=== PATIENT | female | born 1940 | race Caucasian/White ===

== ENCOUNTER 2024-12-07 11:50 | Inpatient (IN) ==
--- NOTE | 2024-12-07 12:08 | Emergency Department Note ---
Impression & Plan Stroke-like symptoms, Acute dehydration ED Provider Note Name: MALLORIE Silva KRYSTAL Age: 83 Sex: Female Arrives Via: Walk-In Informant: Patient, daughter ED Provider: Tito Marcial MD Chief Complaint: Strokelike symptoms Impression: As per impressions above Medical Decision Making: Pleasant 83-year-old female with a history of CHF, arrhythmia, dry mouth, single kidney status post resection of other for cancer arrives for evaluation of acute onset strokelike symptoms consisting of difficulty finding words, tremors and inability to ambulate in a straight line. Symptoms waxing and waning and seem to have improved somewhat on arrival. Mildly hypertensive on arrival as well. She is on Eliquis however given concerns for LVO and her inability to ambulate it was felt that CT of the head and angiography head and neck would be indicated. Sent emergency CT. Fortunately this does not show any acute obstructive pathology, bleed or mass as per CT. On return to ER laboratory workup does show moderately elevated creatinine though not overt failure. She does have known CHF but with her solitary kidney I think following a dye load it would be reasonable to give her some IV fluids. She does appear to be improving significantly. She admits that this is the third day in a row that this has been occurring. I do not feel that she would be a TNKase candidate given the several days of symptoms let alone the waxing and waning and her being on Eliquis. No clear other finding of infection at this time. Given her past medical history and these findings hospitalization would be indicated. There is no evidence of seizure at this time. Triage/Nursing Notes reviewed by Me Differential:Infection, dehydration, metabolic abnormality, hypo/hyperglycemia, electrolyte disturbance, anemia, hypoxia, cardiac sources, intracerebral event, toxicologic, neurologic, as well as other pathologies. Vital Signs: reviewed and remarkable for HTN Interventions: nss bolus Labs:ED labs Reviewed by me and remarkable for mild renal insufficiency Imaging:CT of the head without contrast as per my informal interpretation reveals no intracranial hemorrhage or mass effect. See radiologist report for full. CT of the head and neck with angiography reveals diffuse calcifications though no evidence of obstructive pathology. This is as per radiologist please see their report for full EKG:As per my interpretation. Indication weakness. AV dual paced at 70 bpm with a QTc of 598. There is no ectopy nor ischemia. There are no previous for comparison. Cardiac/Tele Monitoring: Cardiac Monitoring: An Order was placed for continuous cardiac monitoring. The monitor shows a rate of 70 with a paced rhythm. Consults:Discussed with Dr. Michel of the hospital service who will manage further. Plan: Disposition:Hospitalization. Condition: Good History of Present Illness: 83-year-old female arrives for evaluation of strokelike symptoms. Patient was last known well at 9 AM this morning when she was picked up by her daughter to drive from [place] here. On arrival patient was noted to be confused having difficulty walking straightly and was having slurred speech. Symptoms seem to wax and wane a bit. She did lose bladder control at 1 point. She was taken via private vehicle to [facility] for evaluation. On arrival patient speech is improved though she still feels unstable with her legs. Patient denies any headache, neck pain. She had a fall earlier today while trying to go to the bathroom but believes symptoms started prior to that. She has a bruise on her left shoulder which is from a RSV vaccine about 2 weeks ago. No recent fevers, chills, nausea, vomiting. Denies any abdominal pain, black stools, bleeding. Denies any leg swelling or calf pain. She has not been having any chest pain or palpitations. She has a history of A-fib and a pacemaker. She takes Eliquis twice daily and most recent dose was this morning. She did have breakfast. She has no history of blood sugar issues. Patient has a known solitary kidney. Daughter notes that patient reported having had similar episode the last few days that is been intermittent. Past Medical History: Single kidney, CHF, arrhythmia severe issues with dry mouth Home Medications: Multiple indications of note Eliquis Allergies: No known drug allergies or IV dye allergies Vitals:Blood Pressure: 170/101, Pulse 70, RR 18, T 36.7C, O2 94% on RA Physical Exam: GENERAL: Patient is tired appearing and in minimal distress. Dehydrated with dry mucous membranes RESPIRATORY: No dyspnea. Clear to auscultation and equal bilaterally. CARDIOVASCULAR: Regular rate and rhythm.No murmur appreciated. GASTROINTESTINAL: Abdomen soft, non-tender, no peritonitis. EXTREMITIES: Very tremulous with any movement. no cyanosis, no edema. NEUROLOGIC: Alert and oriented. No focal neurologic deficits appreciated. A bit of word finding difficulty at times but otherwise clear speech. Very tremulous and difficulty with lifting either leg. No focal deficit of cranial nerve appreciated. SKIN: No rash, no jaundice, no diaphoresis. Bruise left lateral shoulder PSYCH: Appropriate GCS: 15 ED Course: Times/Reassessments: Multiple repeat evaluations. Patient is stable throughout and improving Tito Marcial MD Past Med/Surg History Problem List (Updated 12/07/24 @ 17:53 by Tito Marcial MD) Acute dehydration (Acute) Prolonged QT interval Ambulatory dysfunction Stroke-like symptoms (Acute) Social History Smoking Status: Never smoker Preferred Language: Albanian Feels Safe at Home: Yes Allergies Allergies Allergy/AdvReac Type Severity Reaction Status Date / Time azithromycin Allergy Mild Rash Verified 12/07/24 12:37 chlorhexidine Allergy Mild Rash Verified 12/07/24 12:37 [From ChloraPrep Clear] isopropyl alcohol Allergy Mild Rash Verified 12/07/24 12:37 [From ChloraPrep Clear] Penicillins Allergy Mild Rash Verified 12/07/24 12:37 Home Meds Home Medications Medication Instructions Recorded Confirmed Calcium 600 + D(3) 600 mg PO DAILY 12/07/24 12/07/24 Coreg 25 mg PO BID 12/07/24 12/07/24 Eliquis 2.5 mg PO BID 12/07/24 12/07/24 Jardiance 10 mg PO DAILY 12/07/24 12/07/24 Lasix See Rx Instructions .Route .COMPLEX 12/07/24 12/07/24 Lokelma 10 g PO DAILY 12/07/24 12/07/24 alendronate 70 mg PO UNKNOWN 12/07/24 12/07/24 cyanocobalamin (vitamin B-12) 100 mcg PO DAILY 12/07/24 12/07/24 ezetimibe 10 mg PO DAILY 12/07/24 12/07/24 hydralazine 25 mg PO BID 12/07/24 12/07/24 levetiracetam 500 mg PO HS 12/07/24 12/07/24 omeprazole 40 mg PO DAILY 12/07/24 12/07/24 oxybutynin 15 mg PO BID 12/07/24 12/07/24 propafenone 300 mg PO TID 12/07/24 12/07/24 spironolactone 25 mg PO DAILY 12/07/24 12/07/24 valsartan 160 mg PO DAILY 12/07/24 12/07/24 Results & Data (ED) Vital Signs Vital Signs - 24 hr 12/07/24 11:54 12/07/24 12:24 12/07/24 12:26 Temperature 36.7 C Temperature Source Temporal Artery Scan Pulse Rate 71 70 Pulse Rate [Apical] Respiratory Rate 18 Respiratory Effort / Characteristics Respiratory Depth Respiratory Pattern Blood Pressure 170/101 H Blood Pressure [Right Arm] Blood Pressure Mean 124 Blood Pressure Mean [Right Arm] Blood Pressure Position [Right Arm] Pulse Oximetry 94 Oxygen Delivery Method Room Air Room Air Sepsis Recent Fever Within 48 Hours No Sepsis New/Unexplained Change in Mental Status N/A Sepsis Action Taken by Nursing No Action Required 12/07/24 12:28 12/07/24 14:00 12/07/24 15:49 Temperature 36.8 C Temperature Source Oral Pulse Rate Pulse Rate [Apical] 70 83 99 H Respiratory Rate 20 19 22 Respiratory Effort / Characteristics Non-Labored Spontaneous Non-Labored Non-Labored Respiratory Depth Normal Normal Normal Respiratory Pattern Regular Blood Pressure Blood Pressure [Right Arm] 163/91 H 171/122 H 176/96 H Blood Pressure Mean Blood Pressure Mean [Right Arm] 115 138 122 Blood Pressure Position [Right Arm] Pulse Oximetry 92 92 92 Oxygen Delivery Method Room Air Room Air Room Air Sepsis Recent Fever Within 48 Hours Sepsis New/Unexplained Change in Mental Status Sepsis Action Taken by Nursing 12/07/24 16:27 12/07/24 17:00 Temperature Temperature Source Pulse Rate 105 H Pulse Rate [Apical] 105 H Respiratory Rate 18 Respiratory Effort / Characteristics Respiratory Depth Respiratory Pattern Blood Pressure Blood Pressure [Right Arm] 162/110 H Blood Pressure Mean Blood Pressure Mean [Right Arm] 127 Blood Pressure Position [Right Arm] Lying Pulse Oximetry 92 Oxygen Delivery Method Room Air Sepsis Recent Fever Within 48 Hours Sepsis New/Unexplained Change in Mental Status Sepsis Action Taken by Nursing Laboratory Data 12/07/24 12:07 12/07/24 12:07 Lab Results 12/07/24 12/07/24 12/07/24 Range/Units 12:07 12:11 13:58 WBC 7.43 (4.8-10.8) K/ul RBC 4.02 L (4.20-5.40) M/uL Hgb 10.4 L (12.0-16.0) g/dl POC Hgb 11.6 L (12.0-16.0) g/dl Hct 34.4 L (37.0-47.0) % POC Hct 34 L (37-47) % MCV 85.6 (80.0-100.0) fL MCH 25.9 (25.0-34.0) pg MCHC 30.2 L (32.0-36.0) g/dL RDW Std Deviation 46.6 H (36.4-46.3) fL RDW Coeff of Yandel 14.8 H (11.5-14.5) % Plt Count 262 (130-400) K/uL MPV 11.0 (9.4-12.4) fL Immature Gran % (Auto) 0.3 % Neut % (Auto) 66.7 % Lymph % (Auto) 18.7 % Cottle % (Auto) 8.6 % Eos % (Auto) 5.2 % Baso % (Auto) 0.5 % Neut # (Auto) 4.95 (1.40-6.50) K/uL Lymph # (Auto) 1.39 (1.20-3.40) K/uL Cottle # (Auto) 0.64 H (0.11-0.59) K/uL Eos # (Auto) 0.39 (0.00-0.50) K/uL Baso # (Auto) 0.04 (0.00-0.20) K/uL Immature Gran # (Auto) 0.02 (0.01-0.20) K/uL PT 11.4 (9.0-12.0) Seconds INR 1.1 (0.9-1.1) APTT 25 (21-31) Seconds PTT Ratio 0.9 POC Sodium 139 (135-144) mmol/L Sodium 139 (136-145) mmol/L POC Potassium 4.2 (3.3-5.0) mmol/L Potassium 4.2 (3.5-5.1) mmol/L POC Chloride 100 L (101-112) mmol/L Chloride 102 (98-107) mmol/L Carbon Dioxide 30 (21-32) mmol/L POC Total CO2 26 (24-31) mmol/L Anion Gap 7 (3-11) POC Anion Gap 18.0 (16-25) mmol/L POC BUN 37 H (7-18) mg/dl BUN 39 H (6-23) mg/dl Creatinine 1.65 H (0.6-1.2) mg/dl POC Creatinine 1.7 H (0.6-1.3) mg/dl Est Cr Clr Drug Dosing 24.6 ml/min eGFR 30.84 BUN/Creatinine Ratio 23.6 H (10-20) Glucose 147 H (70-99(Fasting)) mg/dl POC Glucose (other) 144 H (70-99) mg/dl Calcium 9.7 (8.6-10.3) mg/dl POC Ioniz Calcium Nir 1.21 (1.12-1.32) mmol/l Magnesium 2.0 (1.7-2.4) mg/dl Total Bilirubin 0.4 (0.2-1.0) mg/dl AST 23 (13-39) U/L ALT 12 (7-52) U/L Alkaline Phosphatase 36 (34-104) U/L Troponin I High Sens 4.0 (0-14) pg/ml Total Protein 7.3 (6.0-8.3) gm/dl Albumin 4.4 (3.4-5.0) gm/dl Globulin 2.9 (2.5-4.0) gm/dl Albumin/Globulin Ratio 1.5 (0.9-2) Urine Color Yellow Urine Appearance Clear (Clear) Urine pH 5.5 (4.5-7.5) Ur Specific [place] 1.017 (1.000-1.030) Urine Protein Negative (Negative) Urine Glucose (UA) 2+ H (Negative) Urine Ketones Negative (Negative) Urine Blood Negative (Negative) Urine Nitrite Negative (Negative) Urine Bilirubin Negative (Negative) Urine Urobilinogen Negative (Negative) Ur Leukocyte Esterase Negative (Negative) Blood Type A Positive Antibody Screen NEGATIVE Administered Medications Sodium Chloride (Nss) 1,000 mls @ 80 mls/hr IV .[id number] CARRIE Stop: 12/08/24 04:29 Last Admin: 12/07/24 16:21 Dose: 80 mls/hr Documented By: BETHANIE Discontinued Medications Sodium Chloride (Nss) 500 mls @ 999 mls/hr IV .Q31M ONE Stop: 12/07/24 13:36 Last Infusion: 12/07/24 15:08 Dose: Infused Documented By: Admin: 12/07/24 13:16 Dose: 999 mls/hr Documented By: JACE Ioversol (Optiray 320 125ml) 118 ml IV ONCE ONE Stop: 12/07/24 12:16 Last Admin: 12/07/24 12:18 Dose: 118 ml Documented By: LESLIE Imaging Data Radiologist's Impression: Head CT 12/07/24 12:07 EXAM: CT Head Without Intravenous Contrast INDICATION: Ataxia and slurred speech. TECHNIQUE: Axial computed tomography images of the head/brain without intravenous contrast. Sagittal and/or coronal reformats are provided. Sagittal and coronal reformatted images were created and reviewed. This CT exam was performed using one or more of the following dose reduction techniques: automated exposure control, adjustment of the mA and/or kV according to patient size, and/or use of iterative reconstruction technique. COMPARISON: No relevant prior studies available. FINDINGS: Limitations: None. Brain and extra-axial spaces: There is age appropriate cortical atrophy and chronic ischemic periventricular white matter hypodensity. No acute infarct, hemorrhage or mass noted. Bones/joints: No acute changes. Soft tissues: No significant abnormality noted. Vasculature: There is atherosclerosis in the intracranial vertebral and carotid arteries. Sinuses: No layering fluid in the visualized portions of the paranasal sinuses. Mastoid air cells: No mastoid effusion. Orbits: No significant abnormality noted. IMPRESSION: Cerebral atrophy. No acute changes. Findings discussed by phone with Dr. Marcial at 12:30 PM to 11/25/2024. ACT 112: Negative or not required by law. Electronically signed by Jessenia Conroy 12-07-2024 12:32 PM Head CTA 12/07/24 12:07 EXAM: CT Angiography Head and Neck With Intravenous Contrast INDICATION: Slurred speech and ataxia. TECHNIQUE: [place] [facility] [place]/head and neck CT angiography protocol performed with intravenous contrast. Sagittal and coronal reformatted images were created and reviewed. This CT exam was performed using one or more of the following dose reduction techniques: automated exposure control, adjustment of the mA and/or kV according to patient size, and/or use of iterative reconstruction technique. MIP reconstructed images were created and reviewed. CONTRAST: 118ml of Optiray 320 was administered intravenously. COMPARISON: None. FINDINGS: HEAD: Right anterior cerebral artery: No abnormality noted. No occlusion or significant stenosis. Anterior communicating artery is present. No aneurysm. Right middle cerebral artery: No abnormality noted. No occlusion or significant stenosis. No aneurysm. Right posterior cerebral artery: No abnormality noted. No occlusion or significant stenosis. No aneurysm. Right intracranial internal carotid artery: There is atherosclerosis of the right intracranial internal carotid artery. No stenosis, aneurysm or occlusion. Right intracranial vertebral artery: Small focal calcification in the intracranial right vertebral artery. No stenosis, aneurysm, occlusion or dissection. Left anterior cerebral artery: No abnormality noted. No occlusion or significant stenosis. No aneurysm. Left middle cerebral artery: No abnormality noted. No occlusion or significant stenosis. No aneurysm. Left posterior cerebral artery: No abnormality noted. No occlusion or significant stenosis. No aneurysm. Left intracranial internal carotid artery: There is atherosclerosis of the left intracranial internal carotid artery. No stenosis, aneurysm or occlusion. Left intracranial vertebral artery: No abnormality noted. No significant stenosis. No dissection or occlusion. Basilar artery: There is a small focal calcification at the origin of the basilar artery which is patent. No occlusion or significant stenosis. No aneurysm. Other vasculature: Patent dural venous sinuses. No vascular malformation. Sinuses: There is mild chronic right maxillary sinus mucosal thickening. NECK: Right common carotid artery: No abnormality noted. No significant stenosis. No dissection or occlusion. Right extracranial internal carotid artery: There is mild mixed plaque at the right carotid bulb. No stenosis, aneurysm, occlusion or dissection. Right external carotid artery: No abnormality noted. No occlusion. Right extracranial vertebral artery: No abnormality noted. No significant stenosis. No dissection or occlusion. Left common carotid artery: No abnormality noted. No significant stenosis. No dissection or occlusion. Left extracranial internal carotid artery: There is mild mixed plaque at the left carotid bulb. No stenosis, aneurysm, occlusion or dissection. Left external carotid artery: No abnormality noted. No occlusion. Left extracranial vertebral artery: There is calcification of the cervical left vertebral artery. There is no significant stenosis. No obstruction. No aneurysm or dissection. 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 Transverse diameter of the aorta and the segment of maximally dilated left subclavian artery is 5.5 cm. The descending thoracic aorta is ectatic and measures roughly 4 cm sagittal dimension. The azygous arch is splayed over the descending. There is no visible dissection. No hemorrhage. Lung apices: No significant abnormality noted. HEAD and NECK: Bones/joints: No significant abnormality. Soft tissues: No abnormality noted. CAROTID STENOSIS REFERENCE USING NASCET CRITERIA: % ICA stenosis = (1 - narrowest ICA diameter/diameter of distal cervical ICA) x 100. Mild - <50% stenosis. Moderate - 50-69% stenosis. Severe - 70-94% stenosis. Near occlusion - 95-99% stenosis. Occluded - 100% stenosis. IMPRESSION: 1. No large vessel occlusion, aneurysm or dissection within the head or neck. 2. There is mild calcific plaque in the cervical left vertebral and right intracranial vertebral arteries. 3. 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 ACT 112: Negative or not required by law. Electronically signed by Jessenia Conroy 12-07-2024 12:39 PM Neck CTA 12/07/24 12:07 EXAM: CT Angiography Head and Neck With Intravenous Contrast INDICATION: Slurred speech and ataxia. TECHNIQUE: [place]/head and neck CT angiography protocol performed with intravenous contrast. Sagittal and coronal reformatted images were created and reviewed. This CT exam was performed using one or more of the following dose reduction techniques: automated exposure control, adjustment of the mA and/or kV according to patient size, and/or use of iterative reconstruction technique. MIP reconstructed images were created and reviewed. CONTRAST: 118ml of Optiray 320 was administered intravenously. COMPARISON: None. FINDINGS: HEAD: Right anterior cerebral artery: No abnormality noted. No occlusion or significant stenosis. Anterior communicating artery is present. No aneurysm. Right middle cerebral artery: No abnormality noted. No occlusion or significant stenosis. No aneurysm. Right posterior cerebral artery: No abnormality noted. No occlusion or significant stenosis. No aneurysm. Right intracranial internal carotid artery: There is atherosclerosis of the right intracranial internal carotid artery. No stenosis, aneurysm or occlusion. Right intracranial vertebral artery: Small focal calcification in the intracranial right vertebral artery. No stenosis, aneurysm, occlusion or dissection. Left anterior cerebral artery: No abnormality noted. No occlusion or significant stenosis. No aneurysm. Left middle cerebral artery: No abnormality noted. No occlusion or significant stenosis. No aneurysm. Left posterior cerebral artery: No abnormality noted. No occlusion or significant stenosis. No aneurysm. Left intracranial internal carotid artery: There is atherosclerosis of the left intracranial internal carotid artery. No stenosis, aneurysm or occlusion. Left intracranial vertebral artery: No abnormality noted. No significant stenosis. No dissection or occlusion. Basilar artery: There is a small focal calcification at the origin of the basilar artery which is patent. No occlusion or significant stenosis. No aneurysm. Other vasculature: Patent dural venous sinuses. No vascular malformation. Sinuses: There is mild chronic right maxillary sinus mucosal thickening. NECK: Right common carotid artery: No abnormality noted. No significant stenosis. No dissection or occlusion. Right extracranial internal carotid artery: There is mild mixed plaque at the right carotid bulb. No stenosis, aneurysm, occlusion or dissection. Right external carotid artery: No abnormality noted. No occlusion. Right extracranial vertebral artery: No abnormality noted. No significant stenosis. No dissection or occlusion. Left common carotid artery: No abnormality noted. No significant stenosis. No dissection or occlusion. Left extracranial internal carotid artery: There is mild mixed plaque at the left carotid bulb. No stenosis, aneurysm, occlusion or dissection. Left external carotid artery: No abnormality noted. No occlusion. Left extracranial vertebral artery: There is calcification of the cervical left vertebral artery. There is no significant stenosis. No obstruction. No aneurysm or dissection. 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 Transverse diameter of the aorta and the segment of maximally dilated left subclavian artery is 5.5 cm. The descending thoracic aorta is ectatic and measures roughly 4 cm sagittal dimension. The azygous arch is splayed over the descending. There is no visible dissection. No hemorrhage. Lung apices: No significant abnormality noted. HEAD and NECK: Bones/joints: No significant abnormality. Soft tissues: No abnormality noted. CAROTID STENOSIS REFERENCE USING NASCET CRITERIA: % ICA stenosis = (1 - narrowest ICA diameter/diameter of distal cervical ICA) x 100. Mild - <50% stenosis. Moderate - 50-69% stenosis. Severe - 70-94% stenosis. Near occlusion - 95-99% stenosis. Occluded - 100% stenosis. IMPRESSION: 1. No large vessel occlusion, aneurysm or dissection within the head or neck. 2. There is mild calcific plaque in the cervical left vertebral and right intracranial vertebral arteries. 3. 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 ACT 112: Negative or not required by law. Electronically signed by Jessenia Conroy 12-07-2024 12:39 PM Discharge Plan Visit Data Chief Complaint: Neuro Symptoms/Deficit Stated Complaint: UNCONTROLLED SHAKES, SPEECH BREAKING UP ED Provider: Tito Marcial Discharge Problem: Stroke-like symptoms, Acute dehydration Forms Stand Alone Forms: My [facility] Prescriptions Prescriptions: No Action Calcium 600 + D(3) 600 mg 600 mg PO DAILY Coreg 25 mg 25 mg PO BID Eliquis 2.5 mg 2.5 mg PO BID Jardiance 10 mg tablet 10 mg PO DAILY Lasix 20 mg See Rx Instructions .ROUTE .COMPLEX Rx Instructions: 20 mg orally. Daily 5 days a week. Lokelma 10 g powder 10 g PO DAILY alendronate 70 mg tablet 70 mg PO UNKNOWN Rx Instructions: 1 tablet by mouth every 7 days in the morning 30 minutes before first food, beverage, or medication with 6 to 8 oz of water. Do not lie down, eat, or drink for 30 minutes after taking and must remain upright cyanocobalamin (vitamin B-12) 100 mcg 100 mcg PO DAILY ezetimibe 10 mg tablet 10 mg PO DAILY hydralazine 25 mg tablet 25 mg PO BID levetiracetam 500 mg 500 mg PO HS omeprazole 40 mg 40 mg PO DAILY oxybutynin 15 mg tablet 15 mg PO BID propafenone 300 mg 300 mg PO TID spironolactone 25 mg 25 mg PO DAILY valsartan 160 mg 160 mg PO DAILY Referrals Referrals: PCP,NO [Primary Care Provider] -
[2024-12-07] MEDS: OPTIRAY 320 125ml IV ONE (12:18)
[2024-12-07 12:23] LABS: iSTAT Creatinine 1.7 mg/dl (0.6-1.3); iSTAT Hemoglobin 11.6 g/dl (12.0-16.0); iSTAT Ionized Calcium 1.21 mmol/l (1.12-1.32); iSTAT Potassium 4.2 mmol/L (3.3-5.0)
--- NOTE | 2024-12-07 12:32 | CT Scan Report ---
EXAM: CT Head Without Intravenous Contrast INDICATION: Ataxia and slurred speech. TECHNIQUE: Axial computed tomography images of the head/brain without intravenous contrast. Sagittal and/or coronal reformats are provided. Sagittal and coronal reformatted images were created and reviewed. This CT exam was performed using one or more of the following dose reduction techniques: automated exposure control, adjustment of the mA and/or kV according to patient size, and/or use of iterative reconstruction technique. COMPARISON: No relevant prior studies available. FINDINGS: Limitations: None. Brain and extra-axial spaces: There is age appropriate cortical atrophy and chronic ischemic periventricular white matter hypodensity. No acute infarct, hemorrhage or mass noted. Bones/joints: No acute changes. Soft tissues: No significant abnormality noted. Vasculature: There is atherosclerosis in the intracranial vertebral and carotid arteries. Sinuses: No layering fluid in the visualized portions of the paranasal sinuses. Mastoid air cells: No mastoid effusion. Orbits: No significant abnormality noted. IMPRESSION: Cerebral atrophy. No acute changes. Findings discussed by phone with Dr. Marcial at 12:30 PM to 11/25/2024. ACT 112: Negative or not required by law. Electronically signed by Jessenia Conroy 12-07-2024 12:32 PM
--- NOTE | 2024-12-07 12:39 | CT Scan Report ---
EXAM: CT Angiography Head and Neck With Intravenous Contrast INDICATION: Slurred speech and ataxia. TECHNIQUE: [place] [facility] [place]/head and neck CT angiography protocol performed with intravenous contrast. Sagittal and coronal reformatted images were created and reviewed. This CT exam was performed using one or more of the following dose reduction techniques: automated exposure control, adjustment of the mA and/or kV according to patient size, and/or use of iterative reconstruction technique. MIP reconstructed images were created and reviewed. CONTRAST: 118ml of Optiray 320 was administered intravenously. COMPARISON: None. FINDINGS: HEAD: Right anterior cerebral artery: No abnormality noted. No occlusion or significant stenosis. Anterior communicating artery is present. No aneurysm. Right middle cerebral artery: No abnormality noted. No occlusion or significant stenosis. No aneurysm. Right posterior cerebral artery: No abnormality noted. No occlusion or significant stenosis. No aneurysm. Right intracranial internal carotid artery: There is atherosclerosis of the right intracranial internal carotid artery. No stenosis, aneurysm or occlusion. Right intracranial vertebral artery: Small focal calcification in the intracranial right vertebral artery. No stenosis, aneurysm, occlusion or dissection. Left anterior cerebral artery: No abnormality noted. No occlusion or significant stenosis. No aneurysm. Left middle cerebral artery: No abnormality noted. No occlusion or significant stenosis. No aneurysm. Left posterior cerebral artery: No abnormality noted. No occlusion or significant stenosis. No aneurysm. Left intracranial internal carotid artery: There is atherosclerosis of the left intracranial internal carotid artery. No stenosis, aneurysm or occlusion. Left intracranial vertebral artery: No abnormality noted. No significant stenosis. No dissection or occlusion. Basilar artery: There is a small focal calcification at the origin of the basilar artery which is patent. No occlusion or significant stenosis. No aneurysm. Other vasculature: Patent dural venous sinuses. No vascular malformation. Sinuses: There is mild chronic right maxillary sinus mucosal thickening. NECK: Right common carotid artery: No abnormality noted. No significant stenosis. No dissection or occlusion. Right extracranial internal carotid artery: There is mild mixed plaque at the right carotid bulb. No stenosis, aneurysm, occlusion or dissection. Right external carotid artery: No abnormality noted. No occlusion. Right extracranial vertebral artery: No abnormality noted. No significant stenosis. No dissection or occlusion. Left common carotid artery: No abnormality noted. No significant stenosis. No dissection or occlusion. Left extracranial internal carotid artery: There is mild mixed plaque at the left carotid bulb. No stenosis, aneurysm, occlusion or dissection. Left external carotid artery: No abnormality noted. No occlusion. Left extracranial vertebral artery: There is calcification of the cervical left vertebral artery. There is no significant stenosis. No obstruction. No aneurysm or dissection. 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 Transverse diameter of the aorta and the segment of maximally dilated left subclavian artery is 5.5 cm. The descending thoracic aorta is ectatic and measures roughly 4 cm sagittal dimension. The azygous arch is splayed over the descending. There is no visible dissection. No hemorrhage. Lung apices: No significant abnormality noted. HEAD and NECK: Bones/joints: No significant abnormality. Soft tissues: No abnormality noted. CAROTID STENOSIS REFERENCE USING NASCET CRITERIA: % ICA stenosis = (1 - narrowest ICA diameter/diameter of distal cervical ICA) x 100. Mild - <50% stenosis. Moderate - 50-69% stenosis. Severe - 70-94% stenosis. Near occlusion - 95-99% stenosis. Occluded - 100% stenosis. IMPRESSION: 1. No large vessel occlusion, aneurysm or dissection within the head or neck. 2. There is mild calcific plaque in the cervical left vertebral and right intracranial vertebral arteries. 3. 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 ACT 112: Negative or not required by law. Electronically signed by Jessenia Conroy 12-07-2024 12:39 PM
[2024-12-07 12:41] LABS: Basophils # (auto) 0.04 K/uL (0.00-0.20); Basophils % (auto) 0.5 %; Eosinophils # (auto) 0.39 K/uL (0.00-0.50); Eosinophils % (auto) 5.2 %; Hematocrit (blood only) 34.4 % (37.0-47.0); Hemoglobin 10.4 g/dl (12.0-16.0); Immature Granulocytes # (auto) 0.02 K/uL (0.01-0.20); Immature Granulocytes % (auto) 0.3 %; Lymphocytes # (auto) 1.39 K/uL (1.20-3.40); Lymphocytes % (auto) 18.7 %; Mean Corpuscular Hemoglobin 25.9 pg (25.0-34.0); Mean Corpuscular Hgb Conc 30.2 g/dL (32.0-36.0); Mean Corpuscular Volume 85.6 fL (80.0-100.0); Monocytes # (auto) 0.64 K/uL (0.11-0.59); Monocytes % (auto) 8.6 %; Neutrophils # (auto) 4.95 K/uL (1.40-6.50); Neutrophils % (auto) 66.7 %; Platelet Count 262 K/uL (130-400); RDW Coefficient of Variation 14.8 % (11.5-14.5); RDW Standard Deviation 46.6 fL (36.4-46.3); Red Blood Count 4.02 M/uL (4.20-5.40); White Blood Count 7.43 K/ul (4.8-10.8)
[2024-12-07 12:42] LABS: Albumin Globulin Ratio 1.5 (0.9-2); Albumin Level 4.4 gm/dl (3.4-5.0); BUN Creatinine Ratio 23.6 (10-20); Bilirubin,Total 0.4 mg/dl (0.2-1.0); Calcium 9.7 mg/dl (8.6-10.3); Creatinine Clr Calc Pharmacy 24.6 ml/min; Globulin 2.9 gm/dl (2.5-4.0); Potassium 4.2 mmol/L (3.5-5.1); Total Protein 7.3 gm/dl (6.0-8.3)
[2024-12-07 12:56] LABS: INR 1.1 (0.9-1.1); Partial Thromboplastin Ratio 0.9; Partial Thromboplastin Time 25 Seconds (21-31); Prothrombin Time 11.4 Seconds (9.0-12.0)
[2024-12-07] MEDS: SODIUM CHLORIDE 0.9% 500 ML IV ONE (13:16)
--- NOTE | 2024-12-07 13:51 | History & Physical Report ---
Date of Service December 07, 2024 Assessment & Plan (1) Stroke-like symptoms: (2) Ambulatory dysfunction: (3) Prolonged QT interval: Plan Susan is an 83-year-old female with PMH of HTN, renal cancer s/p right nephrectomy in September 2023, pacemaker, and PAF (on Eliquis). She presented on 12/07 as a stroke alert. Patient is originally from [place], she was driving the [employer] to see her granddaughter (who is a [employer] freshman) performed. She was sleeping in the back of the car, but when she woke up at [facility], she was unable to get out of the car. Her lower extremities were not working, and she was having difficulty with word finding. Patient daughter reports that they were eventually able to get her out of the car, albeit she was wobbly on her feet. #Strokelike symptoms No prior history of strokes Unclear last known well at time of admission; patient reports that the word finding difficulty/stilted speech has been ongoing for the past 2 days; ? Stuttering TIA symptoms UA negative on arrival No leukocytosis; afebrile Head CT, and head/neck CTA without acute findings Brain MRI ordered, pending Note: Alerted by MRI department that patient has a [employer] pacemaker The earliest we were able to obtain this would be on Saturday 12/09 Echocardiogram ordered, pending Will allow permissive HTN for now; labetalol 5 mg IV PRN on-call for SBP >220 or DBP >120 Hold Coreg, hydralazine DDx includes CVA, TIA, and recent change in medications (among other etiologies) Patient does report that her cyber intelligence analyst has been "juggling" medications over the past several months Speech therapy consult appreciated Neurology consulted, appreciate their assistance Will plan to repeat head CT noncon tonight given no MRI until Saturday 12/09 Given multiple days of symptoms, lower risk for emergent conversion; okay to continue Eliquis Aspirin 81 mg daily #Ambulatory dysfunction Bilateral lower extremity weakness PT/OT evaluations appreciated Fall precautions #Prolonged QTc QTc 598 on EKG on admission Would recommend avoiding QTc prolonging agents Continuous telemetry monitoring #Chronic kidney disease versus VANESSA BUN 39, creatinine 1.65 No baseline available Creatinine clearance is <30 on arrival Hold valsartan, spironolactone #History of seizures Patient experienced a fall in 2019, and had a reported Continue Keppra for now EEG ordered, pending #CHF Recent diagnosis over the summer 2023 Continue Jardiance #S/p biventricular pacemaker Continue Eliquis Currently working to obtain records from [place] ([facility]): PCP notes, most recent lab values, and cardio/neurology notes Disposition: Admit to PCU telemetry Full code Regular diet VTE PPx: Eliquis History of Present Illness Chief Complaint: Neurosymptoms/deficits Primary Care Provider: NO PCP Susan is an 83-year-old female with PMH of HTN, renal cancer s/p right nephrectomy in September 2023, pacemaker, and PAF (on Eliquis). She presented on 12/07 as a stroke alert. Patient is originally from [place], she was driving the [facility] to see her granddaughter (who is a [employer] freshman) performed. She was sleeping in the back of the car, but when she woke up at [facility], she was unable to get out of the car. Her lower extremities were not working, and she was having difficulty with word finding. Patient daughter reports that they were eventually able to get her out of the car, albeit she was wobbly on her feet. She then had an accident (urinary continence) in the [facility] bathroom. She did not fall, but daughter was in the bathroom with her, and did help to lower her to the floor. Patient denies prior history of stroke. Patient's family did not appreciate any strokelike symptoms such as slurred speech, facial droop, unilateral deficits; however, he did have significant word finding difficulty, stilted speech, and bilateral ambulatory dysfunction of the lower extremities. The stilted speech has been present for 2 days now, and was present at dinner the night prior. Patient is currently on Keppra after she experienced a fall back in 2019, and was told she had a mini focal seizure. She reports she is unsure if it was a true seizure and that the results were inconclusive; her neurologist recently retired. Patient denies any difficulty swallowing; passed dysphagia at bedside. Patient took her regular morning medic ine today, but reports that her cyber intelligence analyst has been "juggling" her medications over the past few months. For instance, she recently started on Lasix; dx with heart failure over the summer. No history of vertigo. Patient's PCP is Dr. Jessica Porter ([facility] in [place]). Patient was recently placed on Eliquis last year for history of atrial flutter/pacemaker placement. She denies smoking, tobacco use, recent alcohol use. Patient is mildly hypertensive at 160/91 at time of admission; vitals otherwise stable. ED course: NSS 500 mL IV ROS: Patient endorses feeling off balance, LE weakness, ambulatory dysfunction, stilted speech, word finding difficulty, two episodes of diarrhea this past week, and episode of urinary incontinence on 12/07. Patient denies fever, chills, night-sweats, dizziness, lightheadedness, chest pain, chest palpitations, SOB, cough, pleuritic CP, abdominal pain, N/V, burning with urination, or blood in the urine/stool. Allergies Allergy/AdvReac Type Severity Reaction Status Date / Time azithromycin Allergy Mild Rash Verified 12/07/24 12:37 chlorhexidine Allergy Mild Rash Verified 12/07/24 12:37 [From ChloraPrep Clear] isopropyl alcohol Allergy Mild Rash Verified 12/07/24 12:37 [From ChloraPrep Clear] Penicillins Allergy Mild Rash Verified 12/07/24 12:37 Home Medications Medication Instructions Recorded Confirmed Type Calcium 600 + D(3) 600 mg PO DAILY 12/07/24 12/07/24 History Coreg 25 mg PO BID 12/07/24 12/07/24 History Eliquis 2.5 mg PO BID 12/07/24 12/07/24 History Jardiance 10 mg PO DAILY 12/07/24 12/07/24 History Lasix See Rx Instructions .Route .COMPLEX 12/07/24 12/07/24 History Lokelma 10 g PO DAILY 12/07/24 12/07/24 History alendronate 70 mg PO UNKNOWN 12/07/24 12/07/24 History cyanocobalamin (vitamin B-12) 100 mcg PO DAILY 12/07/24 12/07/24 History ezetimibe 10 mg PO DAILY 12/07/24 12/07/24 History hydralazine 25 mg PO BID 12/07/24 12/07/24 History levetiracetam 500 mg PO HS 12/07/24 12/07/24 History omeprazole 40 mg PO DAILY 12/07/24 12/07/24 History oxybutynin 15 mg PO BID 12/07/24 12/07/24 History propafenone 300 mg PO TID 12/07/24 12/07/24 History spironolactone 25 mg PO DAILY 12/07/24 12/07/24 History valsartan 160 mg PO DAILY 12/07/24 12/07/24 History Past Med/Surg History Problem List (Updated 12/07/24 @ 14:58 by Eric Massey PA-C) Prolonged QT interval Ambulatory dysfunction Stroke-like symptoms Social History Smoking Status: Never smoker Preferred Language: [place] Feels Safe at Home: Yes Review of Systems Review of Systems: See HPI above Physical Exam Physical Exam: General: no acute distress; family at bedside; non-toxic appearing; frail appearing; cooperative; SpO2 92% on RA HEENT: normocephalic, atraumatic; no scleral icterus; PERRLA w/ EOMs intact; vision and hearing grossly intact; patient demonstrates ability to smile, frown, lift eyebrows, and protrude tongue without unilateral deficits Neck: supple; no lymphadenopathy; trachea midline; patient demonstrates ability to shrug shoulders against resistance and rotate neck bilaterally without dizziness or unilateral deficits Skin: warm, dry without signs of tenting; no cyanosis; no rashes, bruising, lesions, or erythema noted CV: chest wall NTP; RRR; S1/S2 normal; no murmurs/rubs/gallops; pulses intact and symmetric at radial, DP, and PT Lungs: no acute respiratory distress; symmetrical chest wall expansion; clear breath sounds across all lung maynard w/o adventitious sounds; no wheezing ABD: Soft, NTP; BS present; no rebound/guarding; no distention MSK: no tics or fasciculations; no edema noted in the LEs b/l, nonerythematous; 5/5 director patient accounting strength bilaterally; 4/5 strength in lower extremities bilaterally when lifting legs while supine; patient demonstrates ability to wiggle toes/plantarflex/dorsiflex without unilateral deficits Neuro: A&Ox3; normal mood and affect; she does exhibit stilted speech at times with difficulty getting out her words; no focal deficits appreciated; sensation intact and symmetric in the upper extremities, lower extremities and face bilaterally assessed via light touch Results & Data Results & Data Vital Signs (Past 12 Hours) Vital Signs Temp Pulse Pulse Resp BP BP Pulse Ox 12/07/24 12:28 70 20 163/91 H 92 12/07/24 12:26 12/07/24 12:24 70 12/07/24 11:54 36.7 C 71 18 170/101 H 94 O2 Del Method 12/07/24 12:28 Room Air 12/07/24 12:26 Room Air 12/07/24 12:24 12/07/24 11:54 Room Air Laboratory Results Abnormal lab results 12/07/24 12/07/24 Range/Units 12:07 12:11 RBC 4.02 L (4.20-5.40) M/uL Hgb 10.4 L (12.0-16.0) g/dl POC Hgb 11.6 L (12.0-16.0) g/dl Hct 34.4 L (37.0-47.0) % POC Hct 34 L (37-47) % MCHC 30.2 L (32.0-36.0) g/dL RDW Std Deviation 46.6 H (36.4-46.3) fL RDW Coeff of Yandel 14.8 H (11.5-14.5) % [place] # (Auto) 0.64 H (0.11-0.59) K/uL POC Chloride 100 L (101-112) mmol/L POC BUN 37 H (7-18) mg/dl BUN 39 H (6-23) mg/dl Creatinine 1.65 H (0.6-1.2) mg/dl POC Creatinine 1.7 H (0.6-1.3) mg/dl BUN/Creatinine Ratio 23.6 H (10-20) Glucose 147 H (70-99(Fasting)) mg/dl POC Glucose (other) 144 H (70-99) mg/dl Diagnostic Findings Head CT 12/07/24 12:07 EXAM: CT Head Without Intravenous Contrast INDICATION: Ataxia and slurred speech. TECHNIQUE: Axial computed tomography images of the head/brain without intravenous contrast. Sagittal and/or coronal reformats are provided. Sagittal and coronal reformatted images were created and reviewed. This CT exam was performed using one or more of the following dose reduction techniques: automated exposure control, adjustment of the mA and/or kV according to patient size, and/or use of iterative reconstruction technique. COMPARISON: No relevant prior studies available. FINDINGS: Limitations: None. Brain and extra-axial spaces: There is age appropriate cortical atrophy and chronic ischemic periventricular white matter hypodensity. No acute infarct, hemorrhage or mass noted. Bones/joints: No acute changes. Soft tissues: No significant abnormality noted. Vasculature: There is atherosclerosis in the intracranial vertebral and carotid arteries. Sinuses: No layering fluid in the visualized portions of the paranasal sinuses. Mastoid air cells: No mastoid effusion. Orbits: No significant abnormality noted. IMPRESSION: Cerebral atrophy. No acute changes. Findings discussed by phone with Dr. Marcial at 12:30 PM to 11/25/2024. ACT 112: Negative or not required by law. Electronically signed by Jessenia Conroy 12-07-2024 12:32 PM Head CTA 12/07/24 12:07 EXAM: CT Angiography Head and Neck With Intravenous Contrast INDICATION: Slurred speech and ataxia. TECHNIQUE: [place]/head and neck CT angiography protocol performed with intravenous contrast. Sagittal and coronal reformatted images were created and reviewed. This CT exam was performed using one or more of the following dose reduction techniques: automated exposure control, adjustment of the mA and/or kV according to patient size, and/or use of iterative reconstruction technique. MIP reconstructed images were created and reviewed. CONTRAST: 118ml of Optiray 320 was administered intravenously. COMPARISON: None. FINDINGS: HEAD: Right anterior cerebral artery: No abnormality noted. No occlusion or significant stenosis. Anterior communicating artery is present. No aneurysm. Right middle cerebral artery: No abnormality noted. No occlusion or significant stenosis. No aneurysm. Right posterior cerebral artery: No abnormality noted. No occlusion or significant stenosis. No aneurysm. Right intracranial internal carotid artery: There is atherosclerosis of the right intracranial internal carotid artery. No stenosis, aneurysm or occlusion. Right intracranial vertebral artery: Small focal calcification in the intracranial right vertebral artery. No stenosis, aneurysm, occlusion or dissection. Left anterior cerebral artery: No abnormality noted. No occlusion or significant stenosis. No aneurysm. Left middle cerebral artery: No abnormality noted. No occlusion or significant stenosis. No aneurysm. Left posterior cerebral artery: No abnormality noted. No occlusion or significant stenosis. No aneurysm. Left intracranial internal carotid artery: There is atherosclerosis of the left intracranial internal carotid artery. No stenosis, aneurysm or occlusion. Left intracranial vertebral artery: No abnormality noted. No significant stenosis. No dissection or occlusion. Basilar artery: There is a small focal calcification at the origin of the basilar artery which is patent. No occlusion or significant stenosis. No aneurysm. Other vasculature: Patent dural venous sinuses. No vascular malformation. Sinuses: There is mild chronic right maxillary sinus mucosal thickening. NECK: Right common carotid artery: No abnormality noted. No significant stenosis. No dissection or occlusion. Right extracranial internal carotid artery: There is mild mixed plaque at the right carotid bulb. No stenosis, aneurysm, occlusion or dissection. Right external carotid artery: No abnormality noted. No occlusion. Right extracranial vertebral artery: No abnormality noted. No significant stenosis. No dissection or occlusion. Left common carotid artery: No abnormality noted. No significant stenosis. No dissection or occlusion. Left extracranial internal carotid artery: There is mild mixed plaque at the left carotid bulb. No stenosis, aneurysm, occlusion or dissection. Left external carotid artery: No abnormality noted. No occlusion. Left extracranial vertebral artery: There is calcification of the cervical left vertebral artery. There is no significant stenosis. No obstruction. No aneurysm or dissection. 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 Transverse diameter of the aorta and the segment of maximally dilated left subclavian artery is 5.5 cm. The descending thoracic aorta is ectatic and measures roughly 4 cm sagittal dimension. The azygous arch is splayed over the descending. There is no visible dissection. No hemorrhage. Lung apices: No significant abnormality noted. HEAD and NECK: Bones/joints: No significant abnormality. Soft tissues: No abnormality noted. CAROTID STENOSIS REFERENCE USING NASCET CRITERIA: % ICA stenosis = (1 - narrowest ICA diameter/diameter of distal cervical ICA) x 100. Mild - <50% stenosis. Moderate - 50-69% stenosis. Severe - 70-94% stenosis. Near occlusion - 95-99% stenosis. Occluded - 100% stenosis. IMPRESSION: 1. No large vessel occlusion, aneurysm or dissection within the head or neck. 2. There is mild calcific plaque in the cervical left vertebral and right intracranial vertebral arteries. 3. 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 ACT 112: Negative or not required by law. Electronically signed by Jessenia Conroy 12-07-2024 12:39 PM Neck CTA 12/07/24 12:07 EXAM: CT Angiography Head and Neck With Intravenous Contrast INDICATION: Slurred speech and ataxia. TECHNIQUE: [place]/head and neck CT angiography protocol performed with intravenous contrast. Sagittal and coronal reformatted images were created and reviewed. This CT exam was performed using one or more of the following dose reduction techniques: automated exposure control, adjustment of the mA and/or kV according to patient size, and/or use of iterative reconstruction technique. MIP reconstructed images were created and reviewed. CONTRAST: 118ml of Optiray 320 was administered intravenously. COMPARISON: None. FINDINGS: HEAD: Right anterior cerebral artery: No abnormality noted. No occlusion or significant stenosis. Anterior communicating artery is present. No aneurysm. Right middle cerebral artery: No abnormality noted. No occlusion or significant stenosis. No aneurysm. Right posterior cerebral artery: No abnormality noted. No occlusion or significant stenosis. No aneurysm. Right intracranial internal carotid artery: There is atherosclerosis of the right intracranial internal carotid artery. No stenosis, aneurysm or occlusion. Right intracranial vertebral artery: Small focal calcification in the intracranial right vertebral artery. No stenosis, aneurysm, occlusion or dissection. Left anterior cerebral artery: No abnormality noted. No occlusion or significant stenosis. No aneurysm. Left middle cerebral artery: No abnormality noted. No occlusion or significant stenosis. No aneurysm. Left posterior cerebral artery: No abnormality noted. No occlusion or significant stenosis. No aneurysm. Left intracranial internal carotid artery: There is atherosclerosis of the left intracranial internal carotid artery. No stenosis, aneurysm or occlusion. Left intracranial vertebral artery: No abnormality noted. No significant stenosis. No dissection or occlusion. Basilar artery: There is a small focal calcification at the origin of the basilar artery which is patent. No occlusion or significant stenosis. No aneurysm. Other vasculature: Patent dural venous sinuses. No vascular malformation. Sinuses: There is mild chronic right maxillary sinus mucosal thickening. NECK: Right common carotid artery: No abnormality noted. No significant stenosis. No dissection or occlusion. Right extracranial internal carotid artery: There is mild mixed plaque at the right carotid bulb. No stenosis, aneurysm, occlusion or dissection. Right external carotid artery: No abnormality noted. No occlusion. Right extracranial vertebral artery: No abnormality noted. No significant stenosis. No dissection or occlusion. Left common carotid artery: No abnormality noted. No significant stenosis. No dissection or occlusion. Left extracranial internal carotid artery: There is mild mixed plaque at the left carotid bulb. No stenosis, aneurysm, occlusion or dissection. Left external carotid artery: No abnormality noted. No occlusion. Left extracranial vertebral artery: There is calcification of the cervical left vertebral artery. There is no significant stenosis. No obstruction. No aneurysm or dissection. 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 Transverse diameter of the aorta and the segment of maximally dilated left subclavian artery is 5.5 cm. The descending thoracic aorta is ectatic and measures roughly 4 cm sagittal dimension. The azygous arch is splayed over the descending. There is no visible dissection. No hemorrhage. Lung apices: No significant abnormality noted. HEAD and NECK: Bones/joints: No significant abnormality. Soft tissues: No abnormality noted. CAROTID STENOSIS REFERENCE USING NASCET CRITERIA: % ICA stenosis = (1 - narrowest ICA diameter/diameter of distal cervical ICA) x 100. Mild - <50% stenosis. Moderate - 50-69% stenosis. Severe - 70-94% stenosis. Near occlusion - 95-99% stenosis. Occluded - 100% stenosis. IMPRESSION: 1. No large vessel occlusion, aneurysm or dissection within the head or neck. 2. There is mild calcific plaque in the cervical left vertebral and right intracranial vertebral arteries. 3. 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 ACT 112: Negative or not required by law. Electronically signed by Jessenia Conroy 12-07-2024 12:39 PM ECG Additional Comments: ECG revealed AV dual paced rhythm at 70 bpm; QTc 598 (recommend avoiding QT prolonging agents at this time) No prior EKGs for comparison Code Status & VTE Plan Code Status Full code VTE Prophylaxis Plan VTE Prophylaxis will be ordered: Yes Supervising Physician Co-Signing Physician Notes I have personally seen, evaluated and examined the patient. I have also personally discussed the management of the patient with the resident physician/SCOTT and I agree with the exam findings documented in the history and physical examination and the documented assessment and plan unless otherwise stated below. Brief Exam: In general very pleasant 83-year-old female is alert and oriented x 3 at the time my exam she is accompanied by her daughter and son-in-law at the time of my examination. Extensive mount of time was spent in the patient's room discussing the necessity for repeat CT and recommendations for MRI. It was described that the MRI is complicated by her [employer] pacemaker and we needed to wait till Monday secondary to having the appropriate staff to take care of the pacemaker through the MRI experience. In addition we for that we do an EEG. Patient is willing to proceed with recommendations. Neurology was consulted as discussed above the recommended continue the Eliquis adding aspirin and progressing with a CT of the brain tonight at 8 PM which will be ordered. HEENT: Normocephalic atraumatic. Her mucous membranes are somewhat dry. Had 500 cc of saline in the ER will give her an additional liter given the fact that he had IVP dye with chronic renal insufficiency with a solitary kidney. Heart: Irregular rate and rhythm. There is a 3 out of 6 systolic murmur appreciated left sternal border. Lungs: Clear bilaterally. Abdomen: Soft nontender positive bowel sounds. Extremities: intact no peripheral cyanosis clubbing or significant edema no pronator drift. Strength is 5 out of 5 in extremities x 4 my exam. There is no cerebellar sign. There is some discoordination of the hands but this is secondary to what appears to be severe changes of osteoarthritis of the hands.. Neurologically: Cranial nerves II through XII grossly intact she does have intermittent word finding difficulty. 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 Otherwise is described above her strength is good there is no cerebellar sign or discoordination as discussed above and no strength deficit. Assessment/plan: As discussed above. Question possible TIA versus CVA. Versus possible complex focal seizure activity. Will do permissive hypertension for now. She does state that over the summer her cyber intelligence analyst and cook apprentice was titrating medications due to her hypertension. She states she is in cardiac rehab and she had been sent home 3 times for systolic blood pressure greater than 160 they will not allow her to exercise if greater than 160 at cardiac rehab. But again we will do some permissive hypertension until we get an MRI result. Neurology has been contacted and has been spoken to by the SCOTT as discussed above. Please refer to orders for further planning. PG Care Time/CCT Total # of Minutes Spent Total Time Spent with Patient: Total time spent is greater than 50% in coordination of care (as documented) at patient's floor/unit and/or counseling patient: [place] [address] INT INP/OBS CARE 3/75MIN Patient Type Established Medical Decision Making High Complexity Diagnoses Stroke-like symptoms R29.90 Ambulatory dysfunction R26.2 Prolonged QT interval R94.31
[2024-12-07 14:09] LABS: Appearance Urine Clear (Clear); Bilirubin Urine Negative (Negative); Blood Urine Negative (Negative); Color Urine Yellow; Glucose Urine UA 2+ (Negative); Ketones Urine Negative (Negative); Leukocyte Esterase Urine Negative (Negative); Nitrite Urine Negative (Negative); Protein Urine Negative (Negative); Specific Gravity Urine 1.017 (1.000-1.030); Urobilinogen Urine Negative (Negative); pH Urine 5.5 (4.5-7.5)
[2024-12-07] MEDS ORDERED: PHARMACIST DISCHARGE MED REC CONSULT PRN (14:22)
[2024-12-07] MEDS: SODIUM CHLORIDE 0.9% 1,000 ML IV SCH (16:21)
[2024-12-07] MEDS ORDERED: LABETALOL HCL IV 5 MG/ML 20ML IV PRN (18:52)
[2024-12-07] MEDS: levETIRAcetam 500 MG TAB PO SCH (20:46)
[2024-12-07] MEDS: OXYBUTYNIN CHLORIDE XL 5 MG TABCR PO SCH (20:46)
[2024-12-07] MEDS ORDERED: PROPAFENONE 300 MG PO SCH (21:00)
--- NOTE | 2024-12-07 22:06 | CT Scan Report ---
Exam(s): CT HEAD Without Contrast EXAM: CT Head Without Intravenous Contrast CLINICAL HISTORY: Reason for exam: MRI unavailable; stroke hem conversion r/o. TECHNIQUE: Axial computed tomography images of the head/brain without intravenous contrast. CTDI is 38.84 mGy and DLP is 624.41 mGy-cm. Automated exposure control was utilized for the study. A dose lowering technique was utilized adhering to the principles of ALARA. COMPARISON: December 07, 2024 at 1211 hrs. FINDINGS: Brain: Trace amount of periventricular white matter low density consistent with chronic small vessel disease and/or senescent changes, unchanged. The brain is otherwise unremarkable. No acute large vessel infarct or intracranial hemorrhage is seen. Ventricles: Unremarkable. No ventriculomegaly. Bones/joints: Unremarkable. No acute fracture. Soft tissues: Unremarkable. Vasculature: Trace amount of residual contrast within the venous structures from recent CT angiogram. Sinuses: Unremarkable as visualized. No acute sinusitis. Mastoid air cells: Unremarkable as visualized. No mastoid effusion. IMPRESSION: Trace amount of periventricular white matter low density consistent with chronic small vessel disease and/or senescent changes, unchanged. The brain is otherwise unremarkable. No acute large vessel infarct or intracranial hemorrhage is seen. Electronically signed by: Francisco Diamond MD 12/07/24 22:05 PM
--- NOTE | 2024-12-07 22:48 | Communication Note ---
Date of Service: December 07, [address] reviewed, no acute changes or hemorrhage seen. Will resume patient's Eliquis 2.5 Mg twice daily now.
[2024-12-07] MEDS: APIXABAN 2.5 MG TAB PO STA (23:18)
[2024-12-08] MEDS: METOPROLOL TARTRATE 1 MG/ML VIAL IV STA (00:30)
[2024-12-08] MEDS: MELATONIN 3 MG TAB PO PRN (01:15)
[2024-12-08] MEDS: ACETAMINOPHEN 325 MG TAB PO PRN (04:02)
[2024-12-08 06:28] LABS: Basophils # (auto) 0.04 K/uL (0.00-0.20); Basophils % (auto) 0.7 %; Eosinophils # (auto) 0.26 K/uL (0.00-0.50); Eosinophils % (auto) 4.3 %; Hematocrit (blood only) 29.4 % (37.0-47.0); Hemoglobin 9.3 g/dl (12.0-16.0); Immature Granulocytes # (auto) 0.01 K/uL (0.01-0.20); Immature Granulocytes % (auto) 0.2 %; Lymphocytes # (auto) 1.35 K/uL (1.20-3.40); Lymphocytes % (auto) 22.5 %; Mean Corpuscular Hemoglobin 26.7 pg (25.0-34.0); Mean Corpuscular Hgb Conc 31.6 g/dL (32.0-36.0); Mean Corpuscular Volume 84.5 fL (80.0-100.0); Mean Platelet Volume 10.6 fL (9.4-12.4); Monocytes # (auto) 0.59 K/uL (0.11-0.59); Monocytes % (auto) 9.8 %; Neutrophils # (auto) 3.76 K/uL (1.40-6.50); Neutrophils % (auto) 62.5 %; Platelet Count 195 K/uL (130-400); RDW Standard Deviation 45.9 fL (36.4-46.3); Red Blood Count 3.48 M/uL (4.20-5.40); White Blood Count 6.01 K/ul (4.8-10.8)
[2024-12-08 06:46] LABS: BUN Creatinine Ratio 23.1 (10-20); Calcium 9.3 mg/dl (8.6-10.3); Chol HDL Ratio 3.8 (0-5); Creatinine Clr Calc Pharmacy 28.4 ml/min; Potassium 4.8 mmol/L (3.5-5.1)
--- NOTE | 2024-12-08 08:11 | Hospitalist Progress Note ---
Date of Service December 08, 2024 Assessment & Plan (1) Stroke-like symptoms: (2) Ambulatory dysfunction: (3) Prolonged QT interval: Plan Susan is an 83-year-old female with PMH of HTN, renal cancer s/p right nephrectomy in September 2023, pacemaker, and PAF (on Eliquis). She presented on 12/07 as a stroke alert. Patient is originally from [place], she was driving the [employer] to see her granddaughter (who is a [employer] freshman) performed. She was sleeping in the back of the car, but when she woke up at [facility], she was unable to get out of the car. Her lower extremities were not working, and she was having difficulty with word finding. Patient daughter reports that they were eventually able to get her out of the car, albeit she was wobbly on her feet. #Strokelike symptoms resolution of symptoms, no changes on head CT x 2, UA negative on arrival Echo with depressed EF( history of same) possible mild change on pacer lead could be chronic Head CT, and head/neck CTA without acute findings Brain MRI ordered, pending Note: Alerted by MRI department that patient has a [employer] pacemaker The earliest we were able to obtain this would be on Saturday 12/09 Hold hydralazine, Rhythmol, restart coreg at lower dose DDx includes CVA, TIA, and recent change in medications (among other etiologies) Patient does report that her director title has been "juggling" medications over the past several months Speech therapy consult appreciated Neurology consulted, appreciate their assistance, since cannot rule out Seizure, increase Keppra to 500mg bid Given multiple days of symptoms, lower risk for emergent conversion; okay to continue Eliquis Aspirin 81 mg daily #Ambulatory dysfunction- resolved PT/OT evaluations appreciated Fall precautions #Prolonged QTc QTc 598 on EKG on admission Would recommend avoiding QTc prolonging agents holding rhythmol, start coreg at lower dose, consider dose reduction or Rythmol( currently on hold) at ri #Chronic kidney disease versus VANESSA, Cr improving No baseline available Creatinine clearance is <30 on arrival Hold valsartan, spironolactone #History of seizures Patient experienced a fall in 2019, and had a reported Continue Keppra increase dose to 500mg bid EEG ordered, pending #HFrEF, has biv pacer pacer wire with perhaps fibrin, no clinical suspicion of endocarditis, pending esr on 12/09 not in acute exacerbation restart Coreg Continue Jardiance #h/o afib Continue Eliquis Full code Regular diet VTE PPx: Eliquis If MRI is without significant changes, can consider d/c and return to her healthcare in [facility], decision on antihypertensive meds, HF meds and Rhythmol along with if amendment to antiplatelet regiment at dc Admission and Anticipated Discharge Date Admission Date: December 07, 2024 Subjective pt has returned to her baseline, she is concerned over events and is reassured that will have MRI once pacemaker can be placed in safe mode agreeable to increase keppra to bid dosing Physical Exam Physical Exam: awake and alert, no neurologic deficits cardiac is regular, jose heard at RUSB lungs are clear no facial droop, equal symmetric strength to arms and legs Results & Data Results & Data Vital Signs (Past 12 Hours) Vital Signs Temp Pulse Pulse Pulse Resp BP BP 12/08/24 07:34 97.7 F 88 19 12/08/24 03:25 72 12/08/24 02:55 98.1 F 92 H 17 12/08/24 00:45 108 H 150/82 H 12/08/24 00:37 108 H 150/82 H 12/08/24 00:30 113 H 156/79 H 12/07/24 23:56 156/79 H 12/07/24 22:21 98.1 F 70 20 BP Pulse Ox O2 Del Method 12/08/24 07:34 132/71 97 Room Air 12/08/24 03:25 12/08/24 02:55 136/74 95 Room Air 12/08/24 00:45 12/08/24 00:37 12/08/24 00:30 12/07/24 23:56 12/07/24 22:21 163/75 H 96 Room Air Laboratory Results review cbc review chemsistry discussed case with DR Penn neurology discussed case with Dr De La Cruz regarding Rhythmol dosing and prolonged QTC PG Care Time/CCT Total # of Minutes Spent Total Time Spent with Patient: Total time spent is greater than 50% in coordination of care (as documented) at patient's floor/unit and/or counseling patient: Coding Level of Care Code 63574 SUB INP/OBS CARE 3/50MIN Diagnoses Stroke-like symptoms R29.90 Ambulatory dysfunction R26.2 Prolonged QT interval R94.31
--- NOTE | 2024-12-08 08:47 | Electrocardiogram Report ---
Test Reason : Blood Pressure : */* mmHG Vent. Rate : 113 BPM Atrial Rate : 113 BPM P-R Int : 128 ms QRS Dur : 190 ms QT Int : 440 ms P-R-T Axes : 109 230 92 degrees QTcB Int : 603 ms Atrial-sensed ventricular-paced rhythm Biventricular pacemaker detected Abnormal ECG When compared with ECG of 07-Dec-2024 12:08, Vent. rate has increased by 43 bpm Confirmed by Vitaliy De La Cruz ([id number]) on 12/08/2024 8:46:58 AM Referred By: REFERRED SELF Confirmed By: Vitaliy De La Cruz
--- NOTE | 2024-12-08 09:15 | Electrocardiogram Report ---
Test Reason : Blood Pressure : */* mmHG Vent. Rate : 70 BPM Atrial Rate : 70 BPM P-R Int : 158 ms QRS Dur : 244 ms QT Int : 554 ms P-R-T Axes : * -50 89 degrees QTcB Int : 598 ms AV dual-paced rhythm Biventricular pacemaker detected Abnormal ECG No previous ECGs available Confirmed by Vitaliy De La Cruz ([id number]) on 12/08/2024 9:15:02 AM Referred By: REFERRED SELF Confirmed By: Vitaliy De La Cruz
--- NOTE | 2024-12-08 09:41 | XCELERA ---
[id number]\[id number]
[2024-12-08] MEDS: APIXABAN 2.5 MG TAB PO SCH (10:06)
[2024-12-08] MEDS: EZETIMIBE 10 MG TAB PO SCH (10:06)
[2024-12-08] MEDS: ASPIRIN 81 MG ECTAB PO SCH (10:06)
[2024-12-08] MEDS: EMPAGLIFLOZIN 10 MG TAB PO SCH (10:06)
[2024-12-08] MEDS: SODIUM ZIRCONIUM CYCLOSILICATE 10 GM PACKET PO SCH (10:07)
[2024-12-08] MEDS: PANTOprazole 40 MG TAB PO SCH (10:07)
--- NOTE | 2024-12-08 10:41 | Neurology Consultation ---
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 She has had a few similar episodes over the past few years although her most recent episode prior to admission was much more severe, longer duration, and was associated with urinary incontinence. There was no associated loss of awareness or consciousness. She does have a history of paroxysmal atrial fibrillation, on Eliquis, and has a cardiac pacemaker. Her echocardiogram does reveal mild global hypokinesis, and apical wall motion abnormality likely related to pacemaker activation, and a mobile filamentous echodensity on the right atrial portion of her pacemaker lead that may represent a fibrin deposit or possibly vegetation. She is afebrile and does not have a leukocytosis. Subacute bacterial endocarditis is possible but seems unlikely. Patient has an intact neurological examination without examination findings suggestive of stroke. I would recommend increasing her dosage of Keppra to 500 mg twice daily. She will follow-up with her neurologist in [place]. May consider obtaining ambulatory EEG monitoring. She reports having two routine EEGs previously that may have revealed some abnormalities. I do not think another routine EEG at this time would alter her management and is not absolutely necessary. Brain MRI would be useful to exclude an acute or subacute stroke. Again, however, she has an intact neurological examination this morning, and a stroke seems unlikely at this time. Given her cardiac pacemaker, the MRI cannot be completed until Monday morning with cardiology involvement. Case discussed with Dr. Monroe at bedside. History of Present Illness Reason for Consultation: Strokelike symptoms? Requesting Physician: Bryson Attending Physician: Karlos Monroe MD History of Present Illness The patient is an 83-year-old female, visiting family from out of town. Her daughter had picked her up from home in [place] yesterday morning, they had arrived in the [place] area and stopped to use a restroom at a [facility] convenience store on [address]. the patient was sitting in the backseat of the car and had apparently fallen asleep during the car trip. Upon attempting to get up out of the car she exhibited extreme difficulty moving her limbs, with associated intermittent jerking-like movements of the arms and legs with standing and walking. She has some difficulty with speech pauses and word finding at that time as well. Her daughter assisted her into the store and she apparently had an episode of incontinence in the bathroom. The patient denies any lapse in awareness during this episode. There was no reported collapse or loss of consciousness. She does not recall feeling lightheaded, dizzy, or diaphoretic. The patient indicates that she has had several similar episodes in the past and has been following with a neurologist and graffiti cleaner back home in [place]. Neurologist has been prescribing Keppra 500 mg in the evening. The patient indicates that she has had 2 EEGs completed which revealed some abnormalities. It is unclear if she has a diagnosis of seizure disorder or myoclonus. Her graffiti cleaner has been adjusting her medications for congestive heart failure. She is prescribed Eliquis for paroxysmal atrial fibrillation and has a cardiac pacer. History also notable for renal cancer diagnosed in 2022, post nephrectomy. I have independently reviewed her neuroimaging. She has had 2 head [address]s completed. There is no evidence of hemorrhage or acute process, no hydrocephalus, there is mild cerebral atrophy. There is mild chronic microvascular ischemic disease. There is no evidence of an evolving large infarct. Her CT angiography of the head and neck reveals no significant abnormality. There is mild calcified plaque in the left cervical vertebral artery and right intracranial vertebral artery. 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 I evaluated the patient this morning with her daughter at bedside. Her symptoms have not recurred since admission. Allergies Allergy/AdvReac Type Severity Reaction Status Date / Time azithromycin Allergy Mild Rash Verified 12/07/24 12:37 chlorhexidine Allergy Mild Rash Verified 12/07/24 12:37 [From ChloraPrep Clear] isopropyl alcohol Allergy Mild Rash Verified 12/07/24 12:37 [From ChloraPrep Clear] Penicillins Allergy Mild Rash Verified 12/07/24 12:37 Home Medications Medication Instructions Recorded Confirmed Type Calcium 600 + D(3) 600 mg PO DAILY 12/07/24 12/07/24 History Coreg 25 mg PO BID 12/07/24 12/07/24 History Eliquis 2.5 mg PO BID 12/07/24 12/07/24 History Jardiance 10 mg PO DAILY 12/07/24 12/07/24 History Lasix See Rx Instructions .Route .COMPLEX 12/07/24 12/07/24 History Lokelma 10 g PO DAILY 12/07/24 12/07/24 History alendronate 70 mg PO UNKNOWN 12/07/24 12/07/24 History cyanocobalamin (vitamin B-12) 100 mcg PO DAILY 12/07/24 12/07/24 History ezetimibe 10 mg PO DAILY 12/07/24 12/07/24 History hydralazine 25 mg PO BID 12/07/24 12/07/24 History levetiracetam 500 mg PO HS 12/07/24 12/07/24 History omeprazole 40 mg PO DAILY 12/07/24 12/07/24 History oxybutynin 15 mg PO BID 12/07/24 12/07/24 History propafenone 300 mg PO TID 12/07/24 12/07/24 History spironolactone 25 mg PO DAILY 12/07/24 12/07/24 History valsartan 160 mg PO DAILY 12/07/24 12/07/24 History Patient History Social History Smoking Status: Never smoker Hx Alcohol Use: Yes Alcohol type: wine Hx Substance Use: No Preferred Language: Luxembourger Communication Ability: Effective Billing And Quality Technician Required: No Beliefs That Will Affect Care: None Current Living Situation: Alone Other Information That Helps Us Care for You: No Feels Safe at Home: Yes Safety Concerns: Feels Safe At This Time Assistive Devices: Glasses Exam (Neuro) Constitutional: well developed and well nourished; no acute distress Eyes: normal visual maynard by confrontation, PERRL and EOM intact bilaterally; no nystagmus Neurologic: Oriented to:: Person, Place and Time Memory: Short Term Intact and Remote Intact Attention: Span Intact and Concentration Intact Speech Fluency: negative Dysarthria or Dysfluency Speech Aphasia: negative Aphasia Fund of Knowledge: Current Events, Past History and Vocabulary Cranial Nerves: Normal II, III, IV, , V, VII, VIII, IX, X, XI and XII Motor Strength: Normal Lower Extremities and Normal Upper Extremities Motor Tone: Normal Lower Extremities and Normal Upper Extremities Muscle Bulk/Involuntary Movements: No Involuntary Movements; negative Muscle Atrophy Sensation: Light Touch Intact, Pain/Temperature Intact and Proprioception Intact Coordination: Normal; negative Limited Balance, Dysdiadochokinesia, Finger-Nose Abnormal or Heel-Nuñez Abnormal Deep Tendon Reflexes: Rt Triceps: 1+, Lt Triceps: 1+, Rt Biceps: 1+, Lt Biceps: 1+, Rt Brachioradialis: 1+, Lt Brachioradialis: 1+, Rt Patellar: 1+, Lt Patellar: 1+, Rt Ankle: 1+ and Lt Ankle: 1+ Special Tests: negative Babinski Present Gait: Normal Station and Gait Results & Data Vital Signs (Past 12 Hours) Vital Signs Temp Pulse Pulse Pulse Resp BP BP 12/08/24 07:34 36.5 C 88 19 12/08/24 03:25 72 12/08/24 02:55 36.7 C 92 H 17 12/08/24 00:45 108 H 150/82 H 12/08/24 00:37 108 H 150/82 H 12/08/24 00:30 113 H 156/79 H 12/07/24 23:56 156/79 H 12/07/24 22:21 36.7 C 70 20 BP Pulse Ox O2 Del Method 12/08/24 07:34 132/71 97 Room Air 12/08/24 03:25 12/08/24 02:55 136/74 95 Room Air 12/08/24 00:45 12/08/24 00:37 12/08/24 00:30 12/07/24 23:56 12/07/24 22:21 163/75 H 96 Room Air Laboratory Results WBC 6.01, hemoglobin 9.3, hematocrit 29.4, platelet count 195, sodium 141, potassium 4.8, BUN 33, creatinine 1.43, glucose 98, calcium 9.3, AST 23, ALT 12, triglycerides 147, cholesterol 170, LDL 96, VLDL 29, HDL 45 Diagnostic Findings An echocardiogram completed today revealed mild dilation of the left ventricle, mildly reduced left ventricular systolic function, EF 40 to 45%, mild global hypokinesis of the left ventricle, apical wall motion abnormality likely due to pacemaker, moderate concentric LVH, left atrium severely dilated, mobile filamentous echodensity on the right atrial portion of pacemaker lead, fibrin deposit, vegetation may not be completely excluded, no interatrial shunt with contrast injection. Electrocardiogram revealed an atrial sensed ventricular paced rhythm. Coding Level of Care Code 72585 INT INP/OBS CARE 3/75MIN Diagnoses Myoclonus G25.3 Stroke-like symptoms R29.90 Time Spent (min) 90 Comment Total time includes patient contact, chart review, counseling, note preparation
[2024-12-08] MEDS: carvediloL 6.25 MG TAB PO SCH (13:41)
[2024-12-08] MEDS: levETIRAcetam 500 MG TAB PO ONE (13:41)
[2024-12-08] MEDS: levETIRAcetam 500 MG TAB PO SCH (21:32)
[2024-12-09 06:09] LABS: Hematocrit (blood only) 31.1 % (37.0-47.0); Hemoglobin 9.9 g/dl (12.0-16.0); Mean Corpuscular Hemoglobin 26.9 pg (25.0-34.0); Mean Corpuscular Hgb Conc 31.8 g/dL (32.0-36.0); Mean Corpuscular Volume 84.5 fL (80.0-100.0); Mean Platelet Volume 11.2 fL (9.4-12.4); Platelet Count 210 K/uL (130-400); RDW Coefficient of Variation 14.7 % (11.5-14.5); RDW Standard Deviation 45.1 fL (36.4-46.3); Red Blood Count 3.68 M/uL (4.20-5.40); White Blood Count 5.51 K/ul (4.8-10.8)
[2024-12-09 06:23] LABS: Calcium 9.6 mg/dl (8.6-10.3); Creatinine Clr Calc Pharmacy 25.9 ml/min
[2024-12-09 07:35] VITALS: TEMP 98.1
--- NOTE | 2024-12-09 07:51 | Electroencephalogram ---
EEG Procedure Note Date of Service December 09, 2024 Start / End Times Start Time: 658 End Time: 718 Referring Physician Eric Massey PA-C History Patient is an 83-year-old with history of seizure-like activity Home Medication List Medication Instructions Recorded Confirmed Type Calcium 600 + D(3) 600 mg PO DAILY 12/07/24 12/07/24 History Coreg 25 mg PO BID 12/07/24 12/07/24 History Eliquis 2.5 mg PO BID 12/07/24 12/07/24 History Jardiance 10 mg PO DAILY 12/07/24 12/07/24 History Lasix See Rx Instructions .Route .COMPLEX 12/07/24 12/07/24 History Lokelma 10 g PO DAILY 12/07/24 12/07/24 History alendronate 70 mg PO UNKNOWN 12/07/24 12/07/24 History cyanocobalamin (vitamin B-12) 100 mcg PO DAILY 12/07/24 12/07/24 History ezetimibe 10 mg PO DAILY 12/07/24 12/07/24 History hydralazine 25 mg PO BID 12/07/24 12/07/24 History levetiracetam 500 mg PO HS 12/07/24 12/07/24 History omeprazole 40 mg PO DAILY 12/07/24 12/07/24 History oxybutynin 15 mg PO BID 12/07/24 12/07/24 History propafenone 300 mg PO TID 12/07/24 12/07/24 History spironolactone 25 mg PO DAILY 12/07/24 12/07/24 History valsartan 160 mg PO DAILY 12/07/24 12/07/24 History Inpatient Medication List Acetaminophen (Acetaminophen 325 Mg Tab) 650 mg PO Q4H PRN PRN Reason: Pain or Fever Stop: 01/06/25 18:51 Last Admin: 12/08/24 04:02 Dose: 650 mg Documented By: PAMELA Apixaban (Apixaban 2.5 Mg Tab) 2.5 mg PO BID [facility] Stop: 01/07/25 08:59 Last Admin: 12/08/24 21:33 Dose: 2.5 mg Documented By: Admin: 12/08/24 10:06 Dose: 2.5 mg Documented By: DONALDO Aspirin (Aspirin 81 Mg Ectab) 81 mg PO QAM [facility] Stop: 01/07/25 08:59 Last Admin: 12/08/24 10:06 Dose: 81 mg Documented By: DONALDO Carvedilol (Carvedilol 6.25 Mg Tab) 6.25 mg PO BIDM [facility] Stop: 01/07/25 12:49 Last Admin: 12/08/24 17:53 Dose: 6.25 mg Documented By: Admin: 12/08/24 13:41 Dose: 6.25 mg Documented By: DONALDO Ezetimibe (Ezetimibe 10 Mg Tab) 10 mg PO DAILY [facility] Stop: 01/07/25 08:59 Last Admin: 12/08/24 10:06 Dose: 10 mg Documented By: DONALDO Empagliflozin (Empagliflozin 10 Mg Tab) 10 mg PO DAILY [facility] Stop: 01/07/25 08:59 Last Admin: 12/08/24 10:06 Dose: 10 mg Documented By: DONALDO Levetiracetam (Levetiracetam 500 Mg Tab) 500 mg PO BID [facility] Stop: 01/07/25 20:59 Last Admin: 12/08/24 21:32 Dose: 500 mg Documented By: PAMELA Melatonin (Melatonin 3 Mg Tab) 3 mg PO HS PRN PRN Reason: Sleep Stop: 01/07/25 00:45 Last Admin: 12/08/24 21:38 Dose: 3 mg Documented By: Admin: 12/08/24 01:15 Dose: 3 mg Documented By: PAMELA Oxybutynin Chloride (Oxybutynin Chloride Xl 5 Mg Tabcr) 15 mg PO BID [facility] Stop: 01/06/25 20:59 Last Admin: 12/08/24 21:34 Dose: 15 mg Documented By: Admin: 12/08/24 10:07 Dose: 15 mg Documented By: Admin: 12/07/24 20:46 Dose: 15 mg Documented By: PAMELA Pantoprazole Sodium (Pantoprazole 40 Mg Tab) 40 mg PO DAILY [facility] Stop: 01/07/25 08:59 Last Admin: 12/08/24 10:07 Dose: 40 mg Documented By: DONALDO Sodium Zirconium Cyclosilicate (Sodium Zirconium Cyclosilicate 10 Gm Packet) 10 gm PO DAILY [facility] Stop: 01/07/25 08:59 Last Admin: 12/08/24 10:07 Dose: 10 gm Documented By: DONALDO Discontinued Medications Apixaban (Apixaban 2.5 Mg Tab) 2.5 mg PO ONE STA Stop: 12/07/24 22:48 Last Admin: 12/07/24 23:18 Dose: 2.5 mg Documented By: APMELA Sodium Chloride (Nss) 500 mls @ 999 mls/hr IV .Q31M ONE Stop: 12/07/24 13:36 Last Infusion: 12/07/24 15:08 Dose: Infused Documented By: Admin: 12/07/24 13:16 Dose: 999 mls/hr Documented By: JACE Sodium Chloride (Nss) 1,000 mls @ 80 mls/hr IV .[id number] [facility]RIE Stop: 12/08/24 04:29 Last Infusion: 12/08/24 05:30 Dose: Infused Documented By: Admin: 12/07/24 16:21 Dose: 80 mls/hr Documented By: BETHANIE Ioversol (Optiray 320 125ml) 118 ml IV ONCE ONE Stop: 12/07/24 12:16 Last Admin: 12/07/24 12:18 Dose: 118 ml Documented By: LESLIE Levetiracetam (Levetiracetam 500 Mg Tab) 500 mg PO HS [facility] Stop: 01/06/25 20:59 Last Admin: 12/07/24 20:46 Dose: 500 mg Documented By: PAMELA Levetiracetam (Levetiracetam 500 Mg Tab) 500 mg PO ONE ONE Stop: 12/08/24 12:28 Last Admin: 12/08/24 13:41 Dose: 500 mg Documented By: DONALDO Metoprolol Tartrate (Metoprolol Tartrate 1 Mg/Ml Vial) 2.5 mg IV NOW STA Stop: 12/08/24 00:13 Last Admin: 12/08/24 00:30 Dose: 2.5 mg Documented By: PAMELA Description This is a 21 electrode EEG with a single channel dedicated to limited EKG. The electrodes were placed in accordance with the International 10-20 system. Interpretation The predominant background activity consists of a fairly well modulated 10 Hz activity, of up to 40 mV in amplitude, seen symmetrically distributed over the posterior head regions bilaterally spreading anteriorly bilaterally and symmetrically. This activity attenuates some with eye-opening and other alerting procedures. Photic stimulation was performed and elicited no change in the background activity and no abnormal responses were seen. Hyperventilation was not performed. A considerable amount of electrode artifact was present throughout the first half of the recording in multiple leads, especially C3 and PZ. These were corrected by the process maintenance technician. Otherwise, there was a mild amount of muscle and movement artifact activity contaminated the recording and did not hinder interpretation to any significant degree. Throughout the waking portion of the recording, no focal abnormalities, abnormal slow activity, or potentially epileptogenic discharges were seen. The patient entered the drowsy state with no further activation. In summary, this EEG was normal during wakefulness and drowsiness. No focal abnormalities, potentially epileptogenic discharges, or abnormal slow activity were seen. Clinical Correlation The abscence of potentially epileptogenic activity does not exclude a seizure disorder, since interictally, EEGs can be normal. Clinical correlation is required. [facility] EEG Procedure Codes Indication for Procedure (1) Seizure-like activity: (2) Myoclonus: Neurology Neurology: 30367 EEG include record awake & drowsy
--- NOTE | 2024-12-09 10:14 | Neurology Progress Note ---
Date of Service December 09, 2024 Assessment & Plan (1) Seizure-like activity: (2) Myoclonus: (3) Ambulatory dysfunction: Plan This patient had an unusual episode December 07 (the worst of was lasted 15 to 20 minutes and then gradually improved over the next 4 to 6 hours until gone). It was only present when she was trying to walk and consisted of some jerking and inability to smoothly function any of her limbs. This could be myoclonus stemming from either the brain or spinal cord (since it was all 4 limbs at once without any alteration in consciousness), or may be a type of truncal titubation/truncal tremor. The etiology of this is not readily apparent. I note she has significant renal dysfunction (which could lead to ataxia/myoclonus/tremor) and a history of renal cell carcinoma. She has significant cardiac dysfunction as noted by history and echocardiogram. There does not seem to be any obvious infection however. Today her examination is normal without any gait disturbance or abnormal involuntary movements. EEG was unremarkable/normal. Recommendations: 1. MRI of the brain with and without contrast 2. MRI of the cervical spine with and without contrast 3. Agree with continuing levetiracetam 500 mg twice daily. Levetiracetam is a twice daily drug in my opinion. 4. Consider TSH, B12, Lyme antibody titers 5. Additional recommendations will be made after the above tests. She will be returned to her neurologist in [place] as an outpatient. Overall, I spent a total of 60 minutes with this case including review of records, review of CT films, direct evaluation of the patient at bedside, report generation, and discussion of the case with the patient and daughter at bedside as well as Dr. Javed,including differential diagnosis and treatment options. Admission and Anticipated Discharge Date Admission Date: December 07, 2024 Subjective Patient is feeling essentially back to her baseline today and has had no abnormal involuntary movements since the evening of December 07. Nursing reports no new changes Today, EEG was normal awake and drowsy. There were no focal findings or potentially epileptogenic discharges. CT scan of the head and neck were largely unremarkable without any significant vascular stenoses or anomalies. An MRI of the brain is desired but the patient has a pacemaker and this has to be cleared. Laboratory studies this morning reveal an anemia without elevated white count. Sed rate is normal at 27. Chemistry profile shows an elevated BUN and creatinine (although improved compared to admission when she was more dehydrated. Echocardiogram revealed an ejection fraction of 40 to 45% with mild left ventricular global hypokinesia. There is moderate concentric left LVH and she has a pacemaker. There is severe mitral regurgitation The patient is on apixaban for atrial fibrillation. Apparently the patient was doing well December 07 when she left at 0900 for a car ride to [place]. She was dozing on and off throughout the trip and around 1130 she had to get to the bathroom. She was fine without any abnormal involuntary movements while sitting. When she stood up to get out of the car there were jerks of her legs and arms and a feeling that she could not control her limbs. She had some intermittent speech but it was not slurred and she could understand. She could follow directions and was awake and alert. There was no alteration of mental status. By the time she got to the breakthrough room she had already urinated. In 2019 the patient had some episodes of balance issues and some jerking of legs when standing. She saw a neurologist (Dr. Barker) in [place] who felt there was an abnormal EEG consistent with a possible seizure focus. She was put on 500 mg Keppra in the evening once daily. She has had perhaps 2 episodes of jerking of the limbs while standing only. Patient has a history of renal cell carcinoma. Results & Data Vital Signs (Past 12 Hours) Vital Signs Temp Pulse Pulse Resp BP BP Pulse Ox 12/09/24 07:34 36.7 C 69 17 148/76 H 98 12/09/24 03:31 36.3 C L 71 16 156/75 H 97 12/09/24 00:34 70 12/08/24 23:45 36.7 C 70 17 145/75 H O2 Del Method 12/09/24 07:34 Room Air 12/09/24 03:31 Room Air 12/09/24 00:34 12/08/24 23:45 Room Air Exam (Neuro) Physical Exam: The patient is awake, alert, and attentive, with normal speech and communication. Mood is normal and affect is appropriate. The patient is fully oriented and has intact long and short term memory. Extraocular eye muscles are intact without nystagmus. Facial strength and symmetry is normal bilaterally. Tongue is midline with normal strength bilaterally. Coordination of the arms is normal, without tremor or ataxia bilaterally. Motor strength is 5/5 in all major muscle groups of the arms and legs bilaterally, both proximally and distally. Muscle tone is normal in the limbs, without rigidity or spasticity. Reflexes are 1/4 in all 4 limbs both proximally and distally. Sensation seems intact in all 4 limbs. PG Care Time/CCT Total # of Minutes Spent Total Time Spent with Patient: Total time spent is greater than 50% in coordination of care (as documented) at patient's floor/unit and/or counseling patient: Coding Level of Care Code 77213 SUB INP/OBS CARE 3/50MIN Diagnoses Seizure-like activity R56.9 Myoclonus G25.3 Ambulatory dysfunction R26.2 Time Spent (min) 60
[2024-12-09 11:46] LABS: Magnesium 1.8 mg/dl (1.7-2.4)
--- NOTE | 2024-12-09 11:51 | CT Scan Report ---
CT OF THE CERVICAL SPINE WITHOUT CONTRAST CLINICAL HISTORY: stroke symptoms. Seizure-like activity. COMPARISON STUDY: CTA of the neck December 07, 2024. TECHNIQUE: Helical axial images of the cervical spine were obtained without IV contrast. Sagittal a nd coronal reconstructions were viewed. Automated exposure control was utilized for the study. A do se lowering technique was utilized adhering to the principles of ALARA. FINDINGS: Alignment of the cervical spine is anatomic. Vertebral body heights are maintained. No acut e cervical spine fracture or subluxation is present. There is no prevertebral edema. Facet joints are intact. Moderate multilevel degenerative disc disease and facet arthrosis is present. There are ext ensive degenerative changes at the C1-C2 articulation. Right aortic arch is incidentally noted. There is a left shoulder arthroplasty and left subclavian pacer. IMPRESSION: 1. No acute cervical spine fracture or subluxation. 2. Moderate multilevel degenerative disc disease and facet arthrosis within the cervical spine. ACT 112: Negative or not required by law. Electronically signed by: Radhames Larson M.D. 12/09/2024 11:50 AM
[2024-12-09 12:01] VITALS: RESP 18; O2SAT 96
[2024-12-09 12:10] LABS: Thyroid Stimulating Hormone 4.798 uIu/ml (0.300-4.500)
--- NOTE | 2024-12-09 12:16 | Discharge Summary ---
Date of Service December 09, 2024 Admission HPI Per Admitting Provider Susan is an 83-year-old female with PMH of HTN, renal cancer s/p right nephrectomy in September 2023, pacemaker, and PAF (on Eliquis). She presented on 12/07 as a stroke alert. Patient is originally from [place], she was driving the [employer] to see her granddaughter (who is a [employer] freshman) performed. She was sleeping in the back of the car, but when she woke up at [facility], she was unable to get out of the car. Her lower extremities were not working, and she was having difficulty with word finding. Patient daughter reports that they were eventually able to get her out of the car, albeit she was wobbly on her feet. She then had an accident (urinary continence) in the [facility] bathroom. She did not fall, but daughter was in the bathroom with her, and did help to lower her to the floor. Patient denies prior history of stroke. Patient's family did not appreciate any strokelike symptoms such as slurred speech, facial droop, unilateral deficits; however, he did have significant word finding diffi culty, stilted speech, and bilateral ambulatory dysfunction of the lower extremities. The stilted speech has been present for 2 days now, and was present at dinner the night prior. Patient is currently on Keppra after she experienced a fall back in 2019, and was told she had a mini focal seizure. She reports she is unsure if it was a true seizure and that the results were inconclusive; her neurologist recently retired. Patient denies any difficulty swallowing; passed dysphagia at bedside. Patient took her regular morning medicine today, but reports that her field marketing associate has been "juggling" her medications over the past few months. For instance, she recently started on Lasix; dx with heart failure over the summer. No history of vertigo. Patient's PCP is Dr. Jessica [place] ([facility] in [place]). Patient was recently placed on Eliquis last year for history of atrial flutter/pacemaker placement. She denies smoking, tobacco use, recent alcohol use. Patient is mildly hypertensive at 160/91 at time of admission; vitals otherwise stable. ED course: NSS 500 mL IV ROS: Patient endorses feeling off balance, LE weakness, ambulatory dysfunction, stilted speech, word finding difficulty, two episodes of diarrhea this past week, and episode of urinary incontinence on 12/07. Patient denies fever, chills, night-sweats, dizziness, lightheadedness, chest pain, chest palpitations, SOB, cough, pleuritic CP, abdominal pain, N/V, burning with urination, or blood in the urine/stool. Specialty Data Hospitalist Discharge diagnosis: Seizure activity vs stroke like symptoms Discharge PE: Vital Signs Temp Pulse Pulse Resp BP BP Pulse Ox 12/09/24 12:00 36.7 C 70 18 118/74 96 12/09/24 10:36 74 12/09/24 07:34 36.7 C 69 17 148/76 H 98 12/09/24 03:31 36.3 C L 71 16 156/75 H 97 12/09/24 00:34 70 12/08/24 23:45 36.7 C 70 17 145/75 H 12/08/24 19:37 36.9 C 70 19 153/75 H 97 12/08/24 15:28 36.8 C 70 19 119/61 96 O2 Del Method 12/09/24 12:00 Room Air 12/09/24 10:36 12/09/24 07:34 Room Air 12/09/24 03:31 Room Air 12/09/24 00:34 12/08/24 23:45 Room Air 12/08/24 19:37 Room Air 12/08/24 15:28 Room Air Intake and Output 12/08/24 12/09/24 12/09/24 22:59 06:59 14:59 Intake Total 120 / 1080 360 / 1080 Balance 120 / 1080 360 / 1080 Intake: Oral 120 / 1080 360 / 1080 Other: # Unmeasured Voids 1 1 Weight 64.2 kg Weight Measurement Method Built in [facility] GENERAL: 83 yo thin but well-nourished elderly F. NAD. LUNGS: Clear to auscultation bilaterally. No accessory muscle use. No W/R/R. CARDIOVASCULAR: Regular rate and rhythm. ABDOMEN: Soft, non-tender and non-distended. Bowel sounds normoactive x 4 quad. EXTREMITIES: No edema. Non-tender. Peripheral pulses +2/4. NEUROLOGIC: A&O x3. No focal neurological deficits. CN II-XII grossly intact. PSYCHIATRIC: Cooperative. Appropriate mood and affect. SKIN: Warm, dry, intact. No rashes or lesions. Discharge Data Consultations 12/07/24 13:09 ED Decision to Admit Stat 12/07/24 15:19 Consult Neurology Routine Hospital Course (1) Stroke-like symptoms: resolution of symptoms, no changes on head CT x 2, UA negative on arrival Echo with depressed EF( history of same) possible mild change on pacer lead could be chronic Head CT, and head/neck CTA without acute findings Brain MRI ordered however d/w pt's rep from [employer] ([employer]) - her PPM is not compatible with MRI scanning at our facility Hydralazine, Rhythmol both held, restarted coreg at lower dose DDx includes CVA, TIA, and recent change in medications (among other etiologies) Patient does report that her field marketing associate has been "juggling" medications over the past several months Speech therapy consult appreciated- no speech abnormalities noted on SENIOR TECHNICAL SPECIALIST eval Neurology consulted, appreciate their assistance, since cannot rule out Seizure, increased Keppra to 500mg bid - appreciate neuro input, EEG obtained and neg; MRI cannot be performed. CTH/CTN both WNL - Vit B12, TSH, mag, and lyme ordered. Lyme neg, TSH slightly high at 4.798, FT4 pending, Mag 1.8, and Vit B12 >1500 (2) Ambulatory dysfunction: PT/OT evaluations appreciated Fall precautions Pt returning home to the [place] area with family support (3) Prolonged QT interval: QTc 598 on EKG on admission Would recommend avoiding QTc prolonging agents holding rhythmol, start coreg at lower dose of 6.25mg BID (from 25mg BID) will resume rhythmol, recommend close pcp f/u +/- cardiology and repeat EKG to reassess QT interval Plan #Chronic kidney disease versus VANESSA, Cr improving No baseline available Creatinine clearance is <30 on arrival valsartan, spironolactone both held; however, suspect that creat of 1.5 is likely her baseline with medication changes, BP has been well controlled 118/74 today, would advise close f/u with pcp and all specialists #History of seizures Patient experienced a fall in 2019, and had a reported Continue Keppra increase dose to 500mg bid EEG ordered and was negative for seizure activity per read, neurology still recommends increased dose of keppra and f/u with established neurologist in [place] #HFrEF, has biv pacer pacer wire with perhaps fibrin, no clinical suspicion of endocarditis, pending esr on 12/09 not in acute exacerbation restart Coreg at lower dose Continue Jardiance #h/o afib Continue Eliquis Discharge Instructions Patient is medically and hemodynamically stable for discharge home. New prescriptions sent to her preferred pharmacy in [place]. Pt and daughter updated on plan of care, all questions answered. Records to be printed out and imaging to disc for her to take with her to her follow up appointments upon her return home to [facility]. Plan has been d/w Dr. Javed (attending) and neurology, Dr. Hubbard. Total time for discharge: 36 minutes Coding Level of Care Code 41176 INP/OBS DISCH >30 MIN Diagnoses Stroke-like symptoms R29.90 Ambulatory dysfunction R26.2 Prolonged QT interval R94.31
[2024-12-09] MEDS ORDERED: STROKE PATIENT DISCHARGE STA (12:27)
[2024-12-09 12:43] LABS: T4 Free Thyroxine 0.83 ng/dl (0.61-1.60)
[2024-12-09 13:40] VITALS: BP 156/75; PULSE 108
[2024-12-10 12:58] LABS: Estimated Average Glucose 134 mg/dl; Hemoglobin A1C 6.3 % (4.5-5.6)
== END 2024-12-09 13:50 | disposition home or self-care (01) | DRG 92 ==
LOC: ED 11:50 → 4W 14:30 → SUATTDRO 14:30 → 4W 17:27